=== PATIENT | female | born 1930 | race Caucasian/White ===

== ENCOUNTER 2016-12-30 07:29 | Inpatient (IN) | payer MEDICARE ==
[~2016-12-30] VITALS: Ht 162.6 cm; Wt 74.8 kg
--- NOTE | 2016-12-30 21:00 | HP ---
ADMIT: 12/30/2016 RM/LOC: 508 [facility] MR#: [id number] [address] [address] OSCAR HOLLIS [address] [place] [address] History and Physical SEX: F AGE: 86 : 1930 DATE OF SERVICE: CHIEF COMPLAINT: Fall, leg pain. HISTORY OF PRESENT ILLNESS: The patient is a fantastic 86-year-old female, known to me from clinic, who today was at home, somehow got kind of pushed over by her dog, she fell down with her leg twisted underneath or under the bed. Subsequently, she has a right distal femur fracture. The pain is about 7/10. It is worse with moving. Not radiating anywhere. It is at her distal leg. No numbness or tingling down her leg. No nausea or vomiting. No recent illness prior to this. No shortness of breath. No recent fevers or chills. She had really been in her usual state of health, doing quite well as always recently. PAST MEDICAL HISTORY: 1. Hypothyroidism. 2. History of right knee and hip replacement. 3. History of right foot drop and Achilles injury, distant past. 4. Hypertension. 5. Glaucoma. 6. Hyperthyroidism. 7. History of thyroidectomy. 8. Hyperlipidemia. MEDICATIONS: 1. Tylenol. 2. Tums. 3. Vitamin D3. 4. Synthroid. 5. Meloxicam. 6. Multivitamin. SOCIAL HISTORY: Nonsmoker. Lives at home with her . FAMILY HISTORY: Negative for any blood clots. No surgical issues in the family history. Family history is significant for sister with diabetes and diabetes in maternal grandmother. REVIEW OF SYSTEMS: As per HPI. Otherwise, completely reviewed and negative. PHYSICAL EXAMINATION: VITAL SIGNS: Temperature 97.8, pulse 72, respiratory rate 14, blood pressure 172/67, O2 saturation 96% on room air. GENERAL: She is alert and oriented x3. A little bit more confused than usual, seems like secondary to medications, but otherwise really does well. HEENT: Normocephalic and atraumatic. Pupils equal, round, and reactive to light and accommodation. Extraocular muscles intact. No icterus. Very dry mucous membranes. NECK: No lymphadenopathy. Soft, supple. Trachea midline. LUNGS: Clear to auscultation bilaterally. No wheezes, rales, or rhonchi. ADMIT: 12/30/2016 RM/LOC: 508 [facility] MR#: [id number] [address] [address] [place] [address] History and Physical SEX: F AGE: 86 : 1930 HEART: Regular rate and rhythm. No murmurs, rubs, or gallops. ABDOMEN: Soft, nontender, nondistended. Bowel sounds present. EXTREMITIES: No cyanosis, clubbing, or edema. MUSCULOSKELETAL: Normal bilateral upper extremity strength. Not assessing her lower extremity strength due to the pain associated. She has some associated swelling in her right thigh. No associated bruising. She has some bruising over her right forearm and skin tear. SKIN: No rashes noted. PSYCHIATRIC: Very normal, pleasant. Normal mood and affect. NEUROLOGICAL: No focal deficits noted. Cranial nerves II through XII grossly intact. LABORATORY AND X-RAY DATA: Her potassium is 3.4, creatinine 0.8. Platelets 157, white count 11.2. Carbon dioxide 21, 142. Chest x-ray is reviewed and negative. ASSESSMENT: 1. Distal femur fracture. 2. Hypothyroidism. 3. Hypertension. PLAN: At this point in time, she will go to the OR when okayed by Orthopedic Surgery. She seems fine from a medical standpoint to go to the OR as she is at her minimal amount of risk as she would otherwise be. She had been on meloxicam recently. . Trend her hemoglobin. Otherwise, we will hold off on NSAIDs at this time. Replace her potassium which is slightly low. The patient is agreeable to this plan. Wood Orozco MD/ brianna JOB #: [id number] CC: Wood Orozco, Attending Physician Wood Orozco, Family Physician
[2017-01-05] MEDS ORDERED: SENOKOT8.6 MG PO (12:02)
[2017-01-05] MEDS ORDERED: KLOR-CON M2020 ME1 PO (12:02)
[2017-01-05] MEDS ORDERED: COLACE-DPS100 MG PO (12:03)
[2017-01-05] MEDS ORDERED: XALATAN2.5 ML OU (12:03)
[2017-01-05] MEDS ORDERED: ALPHAGAN P5 ML OS (12:03)
[2017-01-05] MEDS ORDERED: SYNTHROID DPS0.15 MG PO (12:03)
[2017-01-05] MEDS ORDERED: HYDROCODON-ACE1 EAC2 PO (12:04)
[2017-01-05] MEDS ORDERED: MAALOX DPS30 ML PO (12:04)
[2017-01-05] MEDS ORDERED: MILK OF MAGNESI10 ML PO (12:04)
[2017-01-05] MEDS ORDERED: TYLENOL DPS325 MG PO (12:05)
[2017-01-05] MEDS ORDERED: VITAMIN C500 M4 PO (12:05)
--- NOTE | 2017-01-05 23:34 | ER ---
ADMIT: 12/30/2016 RM/LOC: 508 [facility] MR#: [id number] [id number] [place], [place] [address] OSCAR HOLLIS [address] [place] [address] Emergency Room Report SEX: F AGE: 86 : 1930 DATE: 12/30/2016 TIME: 0729 hours. Please refer to my T-sheet for complete H and P. Briefly, the patient is an 86-year-old comes in, fell, twisted her right femur. She has a known history of right hip and knee being replaced by Dr. Miller out of [place]. She states she has been unable to walk on it. It happened just prior. PHYSICAL EXAMINATION: VITAL SIGNS: Stable. HEENT: Grossly normal. LUNGS: Clear. HEART: Regular. EXTREMITIES: Her right thigh is shortened and swollen, slightly rotated. She is neurovascularly intact distally though. EMERGENCY DEPARTMENT COURSE: X-ray of her right femur revealed oblique, displaced fracture of the distal right femur. CBC was normal except white count 11.2. Chemistries normal except potassium 3.4, CO2 of 21, and glucose 198. Coags were normal. She was stable. We titrated morphine. I talked to Dr. Carias and Dr. Orozco, will admit. ASSESSMENT: 1. Right femur fracture as described. 2. Fall. PLAN: Admit to the hospital. Wily Ricks MD/ brianna JOB #: [id number] CC: Wood Orozco MD, Attending Physician Wood Orozco MD, Family Physician
--- NOTE | 2017-01-20 16:15 | OR ---
ADMIT: 12/30/2016 RM/LOC: 508 [facility] MR#: [id number] [address] [address] BUNNYOSCAR [address] [place] [address] Operative/Delivery Room Report SEX: F AGE: 86 : 1930 SURGERY DATE: 12/31/2016 SURGEON: Sidney Carias MD PREOPERATIVE DIAGNOSIS: Right supracondylar comminuted periprosthetic femur fracture. POSTOPERATIVE DIAGNOSIS: Right supracondylar comminuted periprosthetic femur fracture. PROCEDURE: Right femur open reduction and internal fixation. AQUARIST: Miguel Bella PA-C ANESTHESIA: General. COMPLICATIONS: None. BLOOD LOSS: 300 mL. DESCRIPTION OF PROCEDURE: The patient was taken to the operating room, received a general anesthetic. The right leg was prepped and draped in standard fashion. A sterile tourniquet was applied and used at the beginning and end of the case. The leg was not exsanguinated, and incision made in the lateral leg. Dissection carried to subcutaneous tissue down to IT band. We opened up the IT band longitudinally. At that point, she had a large defect in the vastus lateralis with the fracture hematoma. We went ahead and removed the fracture hematoma. There was a very large anterior butterfly fragment with distal and proximal fragments. We went ahead and cleaned out the remainder soft tissue, reduced the butterfly fragment initially to the distal fragment. At that point, placed 2 lag screws through the large fragment into the distal fragment. Once we had that butterfly fragment reduced, we then reduced the distal femur to the proximal femur. Again, I had to place a lag screw through the large butterfly fragment into the proximal fragment. At that point, we had good temporary reduction. We then ended up using a 14-hole plate. We wanted to be sure that we had 1 screw above the tip of the hip prosthesis. We used the external Synthes aiming arm and used a variable angle plate. We positioned the plate distally using direct visualization on ADMIT: 12/30/2016 RM/LOC: 508 [facility] MR#: [id number] [address] [address] OSCAR HOLLIS [address] [place] [address] Operative/Delivery Room Report SEX: F AGE: 86 : 1930 fluoroscopy. We then used the aiming arm then placed the pin proximally to lock the box. At that point, we placed multiple locking screws both proximally and distally and 2 lag screws through the plate to compress the plate to the fracture fragment first. We placed our lag screws prior to any locking screws. At that point, we had 7 solid cortices above the fracture. Very good fixation distally around the prosthesis. We then irrigated out the wounds thoroughly. We then packed 10 mL of DBX bone putty around the fracture sites in the comminution. We then repaired the deep tissue with 0 Vicryl, closed the tensor fascia with interrupted and running 0 Vicryl, subcutaneous with 2-0 Vicryl, geronimo in the skin. Applied sterile dressings. She was placed in a knee immobilizer, taken to recovery room in stable condition with no complications. Sidney Carias MD/ brianna JOB #: [id number] CC: Wood Orozco, Attending Physician Wood Orozco, Family Physician
--- NOTE | 2017-01-23 08:57 | CO ---
ADMIT: 12/30/2016 RM/LOC: 508 [facility] MR#: [id number] [address] [place], [place] [address] HANK HOLLISMELIZA Montero [address] [place] [address] Consultation Report SEX: F AGE: 86 : 1930 CORRECTED: 01/15/2017 0935 NJV DATE OF CONSULTATION: 12/30/2016 ATTENDING PHYSICIAN: Fatou Ulloa MD CONSULTING PHYSICIAN: Sidney Carias MD CHIEF COMPLAINT: Right thigh pain. HISTORY OF PRESENT ILLNESS: The patient is an 86-year-old female coming in to the ER after a fall at home. She states that she was getting out of bed and she tripped over her dog and her leg twisted under the bed. She had immediate pain and called a friend to help her come to the ER. She is now here for definitive care and treatment. PAST MEDICAL HISTORY: Past medical problems include: 1. Hypothyroidism. 2. Osteoarthritis. ALLERGIES: NO KNOWN DRUG ALLERGIES. MEDICATIONS: The patient takes a generic form of Synthroid, a generic form of medication for osteoarthritis, as well as other vitamins. SOCIAL HISTORY: The patient states that she is a never smoker and occasionally drinks a glass of wine. PAST SURGICAL HISTORY: She has a history of thyroidectomy, carpal tunnel release, and cholecystectomy. REVIEW OF SYSTEMS: Comprehensive review of systems reviewed and negative except for what is there in HPI. PHYSICAL EXAMINATION: GENERAL: An 86-year-old female, who is lying comfortably in a hospital bed. MUSCULOSKELETAL: She was having pain on her right upper leg. Right lower extremity is shortened and slightly internally rotated with a large swollen upper thigh. Her distal pulses are intact as well as popliteal pulse. Skin is intact. She has no pain to palpation of her right ankle or lower leg, but has severe pain to palpation of the right thigh region, and no pain to palpation of the right hip. No bruising is noted. She has extreme pain with range of motion of the legs, but no pain with range of motion of the ankle. She has no numbness or tingling, and normal sensation. IMAGING: X-rays of the femur, show a right periprosthetic distal femur fracture with a large anterior butterfly fracture. ADMIT: 12/30/2016 RM/LOC: 508 [facility] MR#: [id number] [address] [address] BUNNY HANKMELIZA Montero [address] [place] [address] Consultation Report SEX: F AGE: 86 : 1930 ASSESSMENT: Right periprosthetic distal femur fracture. PLAN: At this point, we discussed different options at length with the patient and her friend who was also present. We are going to plan to proceed with a right open reduction and internal fixation of a femur fracture with a lateral plate and screws, as well as possible cable placement tomorrow by Dr. Carias. The risks, benefits, and alternatives of the procedure were discussed and the patient elected to proceed. Dr. Orozco will clear the patient from medical standpoint, and we will plan on proceeding to the OR tomorrow. SARIKA Sung / Sidney Carias MD / modl JOB #: [id number] CC: Fatou Ulloa MD, Attending Physician Wood Orozco MD, Family Physician CORRECTED: 01/15/2017 0935 NJV
--- NOTE | 2017-01-25 08:37 | DS ---
ADMIT: 12/30/2016 RM/LOC: 508 [facility] MR#: [id number] [address] [address] LAMIN HOLLIS [address] [place] [address] [place] [address] Discharge Summary SEX: F AGE: 86 : 1930 ADMISSION DATE: 12/30/2016 DISCHARGE DATE: 01/04/2017 DIAGNOSES: 1. Right periprosthetic supracondylar comminuted femur fracture. 2. Hypertension. 3. Hypokalemia. 4. Constipation. 5. Hypothyroid. 6. Anemia due to acute blood loss. 7. Glaucoma. 8. Macular degeneration. CONSULTS: Orthopedics with Sidney Carias MD. PROCEDURE: ORIF, right femur fracture 12/31/2016. REASON FOR HOSPITALIZATION: Fractured femur after a fall. See dictated H. LABORATORY AND X-RAY DATA: Sodium 145, potassium was down to 3, up to 3.3, chloride 112, CO2 24, BUN 12, creatinine 0.6, blood sugar variable, see chart. Calcium 7.9. Anion gap was 12, GFR 83. INR on admission was less than 1, PTT 25. White count 6.5, hemoglobin started at 12.7, final value was 8, hematocrit 26.4, platelet count 199. Urine was unremarkable. X-ray of the right knee with spiral fracture in the distal femur. Chest x-ray was negative. Chest x-ray on the with some atelectasis in that left base primarily. COURSE IN HOSPITAL: Lamin was admitted and placed on Med/Surg. Pain medications were given. Dr. Carias was asked to see. Things were stabilized, and she was taken to surgery and had an ORIF performed on 12/31/2016 that was uneventful. Postop, she had issues with some anemia that was relatively asymptomatic. She was also having some issues with some constipation, which was improved with adjustments in medications. By 01/04/2017, she was felt stable for dismissal over to [facility] for continued physical therapy. DISCHARGE MEDICATIONS: 1. Potassium 20 mEq b.i.d. 2. Senokot-S 1 b.i.d. 3. Synthroid 0.15 daily. 4. Alphagan 0.1% OU t.i.d. ADMIT: 12/30/2016 RM/LOC: 508 [facility] MR#: [id number] [address] [address] LAMIN HOLLIS [address] [place] [address] Discharge Summary SEX: F AGE: 86 : 1930 5. Xalatan 0.005% one drop OU at bedtime. 6. Colace 100 b.i.d. p.r.n. 7. Hydrocodone 7.5/325 one to two every 4 hours p.r.n. 8. Maalox p.r.n. 9. Milk of Mag p.r.n. 10.Tylenol 650 q.4h p.r.n. 11.A vitamin with iron p.r.n. She will see Dr. Middleton again in approximately 10-14 days. She is feeling much improved. Time spent, 50 minutes. Fatou Ulloa MD/ tova JOB #: [id number] CC: Wood Orozco MD, Attending Physician Wood Orozco MD, Family Physician Sidney Carias MD
[2017-01-28] MEDS ORDERED: MELATONIN3 MG PO (13:52)
[2017-01-28] MEDS ORDERED: COSOPT PLUS DPS10 ML OS (13:52)
[2017-01-28] MEDS ORDERED: ULTRAM DPS50 MG PO (13:53)
[2017-01-28] MEDS ORDERED: TYLENOL EXTRA500 M1 PO (13:53)
[2017-01-28] MEDS ORDERED: MILK OF MA400 MG/5 M PO (13:54)
[2017-01-28] MEDS ORDERED: MIRALAX PACKET17 GM PO (13:54)
[2017-01-28] MEDS ORDERED: ASA325 MG PO (13:55)
[2017-01-28] MEDS ORDERED: PRESERVISION A1 EACH PO (13:55)
[2017-01-28] MEDS ORDERED: VITAMIN D3 COM1 EACH PO (13:55)
[2017-04-11] MEDS ORDERED: CORDARONE DPS200 MG PO (20:12)
[2017-04-11] MEDS ORDERED: ATROPINE 1% OD (20:13)
[2017-04-11] MEDS ORDERED: VITAMIN D-32000 UNI1 PO (20:14)
[2017-04-11] MEDS ORDERED: OYSTER SHELL C500 MG PO (20:14)
[2017-04-11] MEDS ORDERED: LOVENOX DP40 MG/0.4 SQ (20:15)
[2017-04-11] MEDS ORDERED: SYNTHROID175 MCG PO (20:15)
[2017-04-11] MEDS ORDERED: COLACE-DPS100 MG PO (20:15)
[2017-04-11] MEDS ORDERED: MELATONIN5 M2 PO (20:16)
[2017-04-11] MEDS ORDERED: METOPROLOL TART25 MG PO (20:16)
[2017-04-11] MEDS ORDERED: MAALOX DPS30 ML PO (20:17)
[2017-04-11] MEDS ORDERED: VITAMIN B-121000 MCG PO (20:17)
[2017-04-11] MEDS ORDERED: OMNIPRED5 ML OD (20:17)
[2017-04-11] MEDS ORDERED: VITAMIN D2000 UNI1 PO (20:18)
== END 2017-01-04 11:29 | DRG 481 ==
LOC: ER 07:29 → 5MS 09:15
PROVIDERS: ADMIT Internal Medicine
PROC: 0QS604Z Reposition Right Upper Femur with Internal Fixation Device, Open Approach (ICD-10-PCS; principal; 2016-12-31)
DX: S72.401A Unspecified fracture of lower end of right femur, initial encounter for closed fracture (principal); M97.01XA Periprosthetic fracture around internal prosthetic right hip joint, initial encounter; Z68.30 Body mass index [BMI] 30.0-30.9, adult; I10 Essential (primary) hypertension; J98.11 Atelectasis; D62 Acute posthemorrhagic anemia; E87.6 Hypokalemia; E66.9 Obesity, unspecified; E89.0 Postprocedural hypothyroidism; K59.00 Constipation, unspecified; H40.9 Unspecified glaucoma; H35.30 Unspecified macular degeneration; E78.5 Hyperlipidemia, unspecified; W19.XXXA Unspecified fall, initial encounter; M19.90 Unspecified osteoarthritis, unspecified site; Z96.641 Presence of right artificial hip joint; Z96.651 Presence of right artificial knee joint

== ENCOUNTER 2017-01-12 08:24 | Inpatient (IN) | payer MEDICARE ==
[~2017-01-12] VITALS: Ht 157.5 cm; Wt 70.8 kg
[~2017-01-12 08:24] MED LIST: ALPHAGAN P5 ML OS; COLACE-DPS100 MG PO; HYDROCODON-ACE1 EAC2 PO; KLOR-CON M2020 ME1 PO; MAALOX DPS30 ML PO; MILK OF MAGNESI10 ML PO; SENOKOT8.6 MG PO; SYNTHROID DPS0.15 MG PO; TYLENOL DPS325 MG PO; VITAMIN C500 M4 PO; XALATAN2.5 ML OU
[2017-01-28] MEDS ORDERED: MELATONIN3 MG PO (13:52)
[2017-01-28] MEDS ORDERED: COSOPT PLUS DPS10 ML OS (13:52)
[2017-01-28] MEDS ORDERED: ULTRAM DPS50 MG PO (13:53)
[2017-01-28] MEDS ORDERED: TYLENOL EXTRA500 M1 PO (13:53)
[2017-01-28] MEDS ORDERED: MIRALAX PACKET17 GM PO (13:54)
[2017-01-28] MEDS ORDERED: MILK OF MA400 MG/5 M PO (13:54)
[2017-01-28] MEDS ORDERED: ASA325 MG PO (13:55)
[2017-01-28] MEDS ORDERED: VITAMIN D3 COM1 EACH PO (13:55)
[2017-01-28] MEDS ORDERED: PRESERVISION A1 EACH PO (13:55)
--- NOTE | 2017-02-24 14:36 | DS ---
ADMIT: 01/12/2017 RM/LOC: 611 [facility] MR#: [id number] [address] [address] OSCAR HOLLIS [address] [place] [address] General Discharge Summary SEX: F AGE: 86 : 1930 ADMISSION DATE: 01/12/2017 DISCHARGE DATE: 01/27/2017 DISCHARGE DIAGNOSES: Orthopedic disorder 08.2 status post femur shaft fracture, S72.451S displaced supracondylar fracture without intracondylar extension of lower end of right femur, onset 12/30/2016, more specifically right supracondylar comminuted periprosthetic femur fracture status post ORIF on 12/31/2016 toe-touch weightbearing, right lower extremity, muscle weakness, imbalance, difficulty in self-care and walking. Other comorbid conditions per initial H and P. Other diagnoses per hospital course below. HOSPITAL COURSE: Please see my initial H and P for details prior to transfer to the IRU. Lovenox was started for DVT prophylaxis. Pain and bowel regimen was adjusted as well with adjusting her Synthroid for hypothyroidism. Lab was monitored regularly. Tylenol scheduled for pain. OxyIR scheduled as well before therapy times. Feosol and vitamin C for acute blood loss anemia with iron deficiency. Two views of the x-ray of the right femur ordered by orthopedics on 01/14/2017 for followup. OxyIR switched to tramadol for pain. Tylenol adjusted for pain. Maalox for GERD and MiraLAX for constipation, changed to p.r.n. Valtrex finished for history of shingles recently. Melatonin started for insomnia. Lab monitored regularly dietitian followed optimize nutrition. Pharmacy followed to optimize medication management. Senokot-S for constipation. Orthopedics followed up on 01/20/2017. Senokot-S again adjusted for constipation. Manual wheelchair ordered during course. Melatonin increased for insomnia. Labs followed up on. Feosol and vitamin C no longer necessary. The patient is medically stable at the time of discharge. Please see U interdisciplinary discharge summary for details regarding progress in therapy. ADMIT: 01/12/2017 RM/LOC: 611 [facility] MR#: [id number] [id number] [facility] [address] [place], [place] [address] OSCAR HOLLIS [address] [place] [address] [place] [address] General Discharge Summary SEX: F AGE: 86 : 1930 DISCHARGE DISPOSITION: Home with ramp and followed by [facility]. Wheelchair delivered prior to discharge by [facility]. All other equipment needed for home already had by the patient and Home Health Services arranged through [facility], RN, PT, OT, home health aide, and she had an appointment Dr. Carias prior to going home, and provided transport. The appointment with Dr. Carias is an outpatient clinic appointment. DISCHARGE MEDICATIONS: Please see discharge med rec. Of note, #30 of Ultram was given with 2 refills. Lovenox was discontinued and switched to aspirin 325 mg p.o. daily for DVT prophylaxis. FOLLOWUP: Dr. Orozco on 02/08/2017. Silvano Middleton MD/ brianna JOB #: [id number] CC:
[2017-04-11] MEDS ORDERED: CORDARONE DPS200 MG PO (20:12)
[2017-04-11] MEDS ORDERED: ATROPINE 1% OD (20:13)
[2017-04-11] MEDS ORDERED: OYSTER SHELL C500 MG PO (20:14)
[2017-04-11] MEDS ORDERED: VITAMIN D-32000 UNI1 PO (20:14)
[2017-04-11] MEDS ORDERED: LOVENOX DP40 MG/0.4 SQ (20:15)
[2017-04-11] MEDS ORDERED: COLACE-DPS100 MG PO (20:15)
[2017-04-11] MEDS ORDERED: SYNTHROID175 MCG PO (20:15)
[2017-04-11] MEDS ORDERED: MELATONIN5 M2 PO (20:16)
[2017-04-11] MEDS ORDERED: METOPROLOL TART25 MG PO (20:16)
[2017-04-11] MEDS ORDERED: VITAMIN B-121000 MCG PO (20:17)
[2017-04-11] MEDS ORDERED: MAALOX DPS30 ML PO (20:17)
[2017-04-11] MEDS ORDERED: OMNIPRED5 ML OD (20:17)
[2017-04-11] MEDS ORDERED: VITAMIN D2000 UNI1 PO (20:18)
== END 2017-01-27 09:35 | disposition home or self-care (01) | DRG 560 ==
LOC: 6IRU 09:17
PROVIDERS: ADMIT Physical Medicine & Rehabilitation
PROC: F08Z0FZ Bathing/Showering Techniques Treatment using Assistive, Adaptive, Supportive or Protective Equipment (ICD-10-PCS; principal; 2017-01-12)
PROC: F08Z2FZ Grooming/Personal Hygiene Treatment using Assistive, Adaptive, Supportive or Protective Equipment (ICD-10-PCS; principal; 2017-01-12)
PROC: F08Z1FZ Dressing Techniques Treatment using Assistive, Adaptive, Supportive or Protective Equipment (ICD-10-PCS; principal; 2017-01-12)
PROC: F07Z9YZ Gait Training/Functional Ambulation Treatment using Other Equipment (ICD-10-PCS; principal; 2017-01-12)
DX: S72.451D Displaced supracondylar fracture without intracondylar extension of lower end of right femur, subsequent encounter for closed fracture with routine healing (principal); D62 Acute posthemorrhagic anemia; R26.89 Other abnormalities of gait and mobility; I10 Essential (primary) hypertension; M97.01XD Periprosthetic fracture around internal prosthetic right hip joint, subsequent encounter; E89.0 Postprocedural hypothyroidism; E78.5 Hyperlipidemia, unspecified; G47.00 Insomnia, unspecified; K59.00 Constipation, unspecified; R60.9 Edema, unspecified; D50.9 Iron deficiency anemia, unspecified; K21.9 Gastro-esophageal reflux disease without esophagitis; W19.XXXD Unspecified fall, subsequent encounter; Z96.641 Presence of right artificial hip joint; Z96.651 Presence of right artificial knee joint